=== PATIENT | male | born 1975 | race Caucasian/White ===

== ENCOUNTER 2022-03-20 08:01 | Oncology outpatient (recurring) (ONCR) | payer MEDICARE, MEDICAID, SELFPAY | END 2022-04-04 23:59 | disposition home or self-care (01) | LOC: ONCMED 08:02 | PROVIDERS: Visit Provider Internal Medicine Hematology & Oncology | DX: C17.2 Malignant neoplasm of ileum (principal); Z93.2 Ileostomy status; Z79.899 Other long term (current) drug therapy | CPT/HCPCS: 99204 ==